=== PATIENT | female | born 1950 | race Caucasian/White ===

== ENCOUNTER 2017-12-03 18:52 | Outpatient (CLI) | payer MEDICARE, OTHER ==
--- NOTE | 2017-12-03 19:00 | CONSULTATION NOTE ---
Palliative Care Consultation - Referral Referring Provider: Lesly HERRERA Time of Visit: [id number] Referral setting: Home Referral Reason: ESRD/Goals of Care - Information Sources Records reviewed: Previous records reviewed History/Review of Systems obtained from: Patient, Family (Daughter Jodie present for visit) Exam limitations: No limitations - History of Present Illness Brief History of Present Illness: This is a 67-year-old woman who has a long and complex history attributed to her Crohn's disease, as a sequela of steroid to use has developed diabetes, progressive renal failure, and peripheral neuropathy. She also has underlying fibromyalgia, has been having increased creatinine, with her most recent one the last September 14, 2015 with a GFR of 14, BUN of 39, and a creatinine of 3.2. Her total protein was 5.1 and albumin 3.1. She does have an ileostomy, she originally had colostomy at age 43, but related to obstructed symptoms and complications has undergone multiple surgeries, currently ileostomy functioning well, and no s/s obstruction. She is also had multiple complications regarding her feet, including necrotizing fasciitis of her right foot in 06/17, with multiple rounds of antibiotic, amputation of her toes, and continued foot problems. Patient reports she is horribly afraid of needles, is distressful of the medical system, and has been fairly consistent in her messaging she does not want to pursue further workup with the chha the recognizing she does have a serious illness that is going to lead to her end of life. She has fairly high symptom burden, with increasing pain, she has underlying fibromyalgia, chronic fatigue syndrome, and arthritis. But she has been having escalating pain in her midthoracic area and feels this is related to her now diagnosed stage V kidney disease. She is using oxycodone 10 mg 4 times a day, reports only gets relief for about 3 or 4 hours, this is significantly impacting her quality of life. She denies pruritus, but is having significant nausea, she has had weight loss but is "forcing herself to eat", she has used cannabinoids for appetite stimulant. She has over the last several days developed some lower extremity edema, with some shallow venous ulcers, she attributes this to having been on her feet and not concentrating nor taking her diuretic. I am meeting with her daughter Jodie and patient, to discuss goals of care, the continuum of care and her wishes round end of life, and discussing her GAMALI[facility]. Medical/Surgical History - Past Medical History Cardiovascular: reports: None Respiratory: reports: None Neuro: reports: Peripheral neuropathy, Other (fibromyalgia) Endocrine/Autoimmune: reports: Type 2 diabetes GI: reports: GI bleed, Crohn's disease, Other (IBS) : reports: Renal insuffiency (now STAGE V;), Kidney stones HEENT: reports: None Psych: reports: Depression, Anxiety, Post traumatic stress disorder Musculoskeletal: reports: Osteoarthritis, Other (charcots foot) Derm: reports: None MRSA Hx?: No - Past Surgical History General: reports: Bowel surgery (ileostomy/hx colostomy at age 43), 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: reports: Tubal ligation, Hysterectomy HEENT: reports: Tonsil/Adenoidectomy - Substance History Use: Uses substance without health or social issues: Cannabis (intermittent for nausea/anxiety) Dependence: Experiences withdrawal or developed tolerances: NONE Social History - Living Situation Living arrangement: At home Living Situation: Alone (patient is ; very close with Daughter Jodie who lives in [place]) Family History - Family History Family History: Mother: (father of old age), Mental Illness, Father: Family History Comment/Other: took care of mother at end of life a few years ago Medications/Allergies - Medications Home Medications: Ambulatory Orders Medication Instructions Recorded Confirmed oxyCODONE [Roxicodone] 10 mg ORAL Q4HR PRN 09/21/14 12/03/17 Furosemide 20 mg PO DAILY PRN 12/03/17 12/03/17 Insulin Glargine [Lantus Solostar] 20 units SUBQ DAILY 12/03/17 12/03/17 Methadone 2.5 mg PO DAILY 12/03/17 12/03/17 Ondansetron [Ondansetron Odt] 4 mg PO Q6HR PRN 12/03/17 12/03/17 Vitamin B Complex/Folic Acid 1 tab PO DAILY 12/03/17 12/03/17 [B-Complex Tablet] amLODIPine [Norvasc] 5 mg PO DAILY 12/03/17 12/03/17 - Allergies Allergies/Adverse Reactions: Allergies Allergy/AdvReac Type Severity Reaction Status Date / Time codeine Allergy unknown Verified 09/21/14 19:15 gluten AdvReac Unknown Verified 09/21/14 19:15 Review of Systems - Constitutional Constitutional: reports: Fatigue, Fever, Chills, Poor appetite, Weight loss - Eyes Eyes: reports: Vision loss, Corrective lenses - Ears, Nose & Throat Ears, Nose & Throat: reports: Sore throat, Other (complains of sinus symptoms) - Cardiovascular Cardiovascular: reports: Edema. denies: Chest pain - Respiratory Respiratory: reports: SOB with exertion - Gastrointestinal Gastrointestinal: reports: Bloating, Poor appetite, Early satiety, Other (has ileostomy) - Genitourinary Genitourinary: reports: Other (very clear pale yellow urine; still voiding) - Musculoskeletal Musculoskeletal: reports: Muscle pain, Back pain, Muscle aches, Stiffness, Limited range of motion, Muscle weakness, Assistive devices (uses cane) - Integumentary Integumentary: reports: Rash, Dryness - Neurological Neurological: reports: General weakness - Psychiatric Psychiatric: reports: Depression, Anxiety - Endocrine Endocrine: reports: Diabetes type 2 (steroid induced) - Hematologic/Lymphatic Hematologic/Lymphatic: reports: Anemia - All Other Systems All Other Systems: reports: Reviewed and negative Physical Exam - Vital Signs Temperature: 97.3 C Pulse Rate: 96 Respiratory Rate: 18 O2 Saturation: 97 (ra @ rest) Blood Pressure: 142/78 - Physical Exam General Appearance: positive: Mild distress, Anxious Eyes Bilateral: positive: Normal inspection ENT: positive: ENT inspection nml Neck: positive: No JVD, Trachea midline Cardiovascular: positive: Regular rate & rhythm Respiratory: positive: Breath sounds nml Abdomen: positive: Soft, Other (ileostomy) Skin: positive: Pallor, Dryness, Wound (LE edema with multiple open areas/ blister;) Extremities: positive: Pedal edema (3+ bilateral up to knees; has not taken diuretic today; reports has been up on feet more last few days) Neurologic/Psychiatric: positive: Oriented x3, Weakness, Depressed mood/affect Palliative Care - POLST Patient has POLST: Yes POLST Status: DNR, Selective Treatment Pain: Pain worsening, Location Tiredness/Fatigue: Severe (7-10) Drowsiness/Sedation: Moderate (4-6) Nausea: Moderate (4-6) Depression: Mild (1-3) Anxiety: Moderate (4-6) Dyspnea: Moderate (4-6) Anorexia: Moderate (4-6) Sleep: Sleeps poorly Constipation: No Feelings of wellbeing/Perceived Quality of Life: Poor, Worsening Performance Status: Patient remains fiercely independent though she does have decreased activity tolerance and increased symptom burden. Is able currently to manage her own ADLs. - Palliative Care Discussion: Counseling regarding addressing patient's questions around the continuum of care , including palliative care support, questions regarding what is covered for support in the home, as well as hospice and end-of-life. We did complete a [facility], and to find her goals which is certainly to focus on quality of life anytime with her family and end-of-life a comfortable respectful . She did choose to be a DNA R, and selective treatment, she would accept some interventions weighing those benefits and burdens as long as she was not prolonging suffering. Her daughter is expecting her first grandchild come June, she is hoping to have her's pain better controlled, so she would be able to travel, and understands the seriousness of her illness. Her understanding of her prognosis is could be months to years. I suspect given her underlying comorbidities, she is at higher risk for more rapid decline, but will need to monitor her over the next few weeks to get a better sense of this. She does present with fairly high symptom burden, with pain, anorexia, nausea , and fluid overload. Remains fairly adamant to stay independent as long as possible Results - Lab Results Lab results reviewed: Yes Impression and Recommendations - Palliative Care Impression: This is a 67-year-old woman who now presents with progressive chronic kidney disease into stage V. At this point in time she is declining dialysis or further follow-up with nephrology. She does present with high symptom burden, particularly pain. She also is fairly clear on her goals of care, and a GAMALIEL ST was completed. Palliative care to provide support regarding pain and symptom management, anticipatory guidance, and transition to hospice when appropriate. Recommendations/Counseling Done: 1. End-stage renal disease, not seeking dialysis. Patient currently still urinating, is having some third spacing and lower extremity edema. She does present with fairly high symptom burden. Her serum creatinine is 3.2 and GFR 14. 2. Acute on chronic pain, multifactorial in origin. Given her end-stage renal disease, recommended medications for management are methadone and fentanyl. Given her underlying neuropathy, and not interested in gabapentin, methadone may be a good option for her. She does live alone so will start her low and slow, she is to use the oxycodone though there is less data on this for renal disease, for breakthrough pain. We will start her at 2.5 mg and titrate accordingly every few days. Reviewed opioid safety, hold if sedated, follow directions, and receive medications from only one provider. 3. Lower extremity edema. Did request patient take her furosemide on a regular basis for the next few days, will evaluate response and consider labs in the next week or 2. Patient is quite adverse though is willing to comply if will assist with symptom management. 4. Anorexia, this is multifactorial in origin as well. She does have intermittent nausea, she is using the cannabinoids with some relief, did provide her though ondansetron 4 mg 1 every 6 hours as needed to address for any acute symptoms. Patient is quite adverse to multiple medications. 5. Advanced care planning. We did complete a GAMALIEL [facility], she is instructed to persist on the fridge. I will get a copy to her provider and the hospital. Patient is hoping to have her symptoms better controlled to improve quality of life recognizing quantity of life is limited. Her goals are to travel with her daughter as well as see the of their new grandchild in June. Patient is pushing up against meeting hospice criteria, will continue to monitor rate of decline. Patient is fiercely independent and lives alone, we also discussed her interest in with dignity, but again reviewed the guidelines state she needed to be within that 6 month window. At this point in time will take a few weeks to months to verify her rate of decline and expected outcome from this. Time Spent: 75 minutes with greater than 50% of this done in counseling regarding the continuum of care symptom management and anticipatory guidance will titrate her pain medications to better control as well as support her in other symptom management and through this trajectory.
== END 2017-12-03 18:53 | disposition home or self-care (01) ==
LOC: PC 18:52
PROVIDERS: ATTEND Nurse Practitioner Adult Health
DX: Z51.5 Encounter for palliative care (principal); E11.22 Type 2 diabetes mellitus with diabetic chronic kidney disease; N18.5 Chronic kidney disease, stage 5; Z79.4 Long term (current) use of insulin; E11.40 Type 2 diabetes mellitus with diabetic neuropathy, unspecified; R60.0 Localized edema; R63.0 Anorexia; R11.0 Nausea; K50.90 Crohn's disease, unspecified, without complications; M79.7 Fibromyalgia; Z93.2 Ileostomy status; R53.82 Chronic fatigue, unspecified; Z89.429 Acquired absence of other toe(s), unspecified side; Z79.891 Long term (current) use of opiate analgesic; F32.9 Major depressive disorder, single episode, unspecified; F41.9 Anxiety disorder, unspecified; F43.10 Post-traumatic stress disorder, unspecified; M62.81 Muscle weakness (generalized); Z66 Do not resuscitate
CPT/HCPCS: 99345

== ENCOUNTER 2017-12-13 15:00 | Outpatient (CLI) | payer MEDICARE, OTHER ==
--- NOTE | 2017-12-13 18:11 | CONSULTATION NOTE ---
Palliative Care Follow Up - Referral Referring Provider: Lesly HERRERA Time of Visit: [id number] Referral setting: Home Referral Reason: ESRD - Information Sources Records reviewed: Previous records reviewed History/Review of Systems obtained from: Patient Exam limitations: No limitations - History of Present Illness Update Brief HPI Update: Please see note 3/2 for more comprehensive BHP. This is a 67-year-old woman has a long and complex history attributed to her Crohn's disease, as the sequela of steroid use is developed diabetes, progressive renal failure and peripheral neuropathy. She does have underlying fibromyalgia. She also has an ileostomy on her right side, she originally had a colostomy on her left, originally at age 43. She has had multiple surgeries, multiple hospitalizations and multiple complications regarding her feet, including necrotizing fasciitis of her right foot in 06/17. I met with patient to evaluate goals of care, currently she does have a diagnosed end-stage renal disease as of her numbers on 09/17/2017 with a GFR of 14, BUN of 39, and a creatinine of 3.2. She has "deathly" afraid of needles, is not interested in follow-up with dialysis or the lining stamper, and is aware that this will lead to an end-of-life event for her. She is hopeful to have some extended period of time, she is expecting her first grandchild in June. She has been having increased pain and discomfort where she has described it is "in her kidneys", she is having increasing anxiety, as well as fatigue and intermittent nausea. We had trialed her this last week on methadone, a very small dose of 2.5 mg at bedtime, she found this actually quite mind altering, felt very depressed, and had nausea and dry heaves. She did trial 5 nights, we did agree at this point in time it most likely was not a good fit for her. She is still getting relief from the oxycodone 10 mg, she has increased her dosing to about 5 in 24 hours, with some days was 6 with increased back pain as she did pull her back moving some furniture. Patient does present with elevated blood pressure today of 172/92, she has not been able to track it as her cuff does not work, has currently ran out of her blood pressure medications as of this morining, have discussed may want to change to another medication have call into her primary care provider. She does have some lower extremity edema, she is only taken the Lasix once this last week, as she reports swelling fluctuates with it increased today. Social History - Living Situation Living arrangement: At home Living Situation: Alone Support System: Her daughter and her are very close, she does come and visit her on weekends as able. Patient so far has been able to manage to hire the support that she is needed, this is her plan that she needs more increased personal caregiving as well Medications/Allergies - Medications Home Medications: Ambulatory Orders Medication Instructions Recorded Confirmed oxyCODONE [Roxicodone] 10 mg ORAL Q4HR PRN 09/21/14 12/13/17 Furosemide 20 mg PO DAILY PRN 12/03/17 12/13/17 Insulin Glargine [Lantus Solostar] 20 units SUBQ DAILY 12/03/17 12/13/17 Ondansetron [Ondansetron Odt] 4 mg PO Q6HR PRN 12/03/17 12/13/17 Vitamin B Complex/Folic Acid 1 tab PO DAILY 12/03/17 12/13/17 [B-Complex Tablet] amLODIPine [Norvasc] 5 mg PO DAILY 12/03/17 12/13/17 Cholecalciferol (Vitamin D3) 5 tab PO DAILY 12/13/17 12/13/17 [Vitamin D3] Multivitamin [Multiple Vitamins] 1 tab PO DAILY 12/13/17 12/13/17 Hampton-3 Fatty Acids/Fish Oil 1 cap PO DAILY 12/13/17 12/13/17 [Hampton-3 Fish Oil 1,000 mg Sfgl] Potassium Gluconate 3 tab PO PRN PRN MDD with 12/13/17 12/13/17 furosemide prn dosing - Allergies Allergies/Adverse Reactions: Allergies Allergy/AdvReac Type Severity Reaction Status Date / Time codeine Allergy unknown Verified 09/21/14 19:15 gabapentin AdvReac Dizziness Verified 12/14/17 07:33 gluten AdvReac Unknown Verified 09/21/14 19:15 methadone AdvReac Dizziness Verified 12/14/17 07:33 Review of Systems - Constitutional Constitutional: reports: Fatigue, Weakness - Ears, Nose & Throat Ears, Nose & Throat: reports: Dry mouth - Cardiovascular Cardiovascular: reports: Decr. exercise tolerance. denies: Chest pain - Respiratory Respiratory: reports: SOB with exertion. denies: Cough, SOB at rest - Gastrointestinal Gastrointestinal: reports: Nausea (with methadone and dry heaves), Good appetite , Other (ileostomy) - Genitourinary Genitourinary: reports: Other (voiding adequate amounts) - Musculoskeletal Musculoskeletal: reports: Back pain (Left sided back pain; acute "overdid"), Stiffness - Integumentary Integumentary: reports: Dryness, Other - Neurological Neurological: reports: General weakness - Psychiatric Psychiatric: reports: Anxiety. denies: Depression - Endocrine Endocrine: reports: Diabetes type 2 - Hematologic/Lymphatic Hematologic/Lymphatic: denies: Recurrent infections - All Other Systems All Other Systems: reports: Reviewed and negative Physical Exam - Vital Signs Temperature: 97.1 C Pulse Rate: 76 Respiratory Rate: 18 O2 Saturation: 97 (ra @ rest) Blood Pressure: 172/92 - Physical Exam General Appearance: positive: No acute distress, Alert Eyes Bilateral: positive: Normal inspection ENT: positive: ENT inspection nml Neck: positive: No JVD, Trachea midline Cardiovascular: positive: Regular rate & rhythm Respiratory: positive: Breath sounds nml Abdomen: positive: Soft Skin: positive: Pallor, Dryness, Wound (right lower extremity with shallow 2 cm wound, no s/s infection) Extremities: positive: Pedal edema (taut LE extremity edema up to midcalf) Neurologic/Psychiatric: positive: Oriented x3, Mood/affect nml Palliative Care - POLST Patient has POLST: Yes POLST Status: DNR, Selective Treatment Pain: Pain worsening, Location (acute on chronic back pain; using oxycodone 10 mg tabs 4-6/24 hours) Tiredness/Fatigue: Moderate (4-6) Drowsiness/Sedation: Mild (1-3) Nausea: None Depression: Mild (1-3) Anxiety: Moderate (4-6) Dyspnea: Mild (1-3) Anorexia: Moderate (4-6) Sleep: Variable sleep pattern Constipation: Comment (has ileostomy) Feelings of wellbeing/Perceived Quality of Life: Fair, Acceptable, Worsening Performance Status: Patient remains independent in her ADLs, though she does have poor activity tolerance. She is ambulatory, able to cook for herself, who put her at a PPS of 70% - Palliative Care Discussion: Discussion centered on follow-up from last visit, is concerned about the stress of this on her daughter. Did discuss as far as prognostication, and managing her current blood pressure meds and diuretics, it would be nice to have some labs for her kidney function. She remains quite adamant as far as her feelings regarding this, would be willing to look at this at the end of January. Did ask her to consider as a compromise, if she continues have lower extremity edema and needing more frequent furosemide, she consider follow up sooner to assist us in managing her meds and comfort. She does have high anxiety, multiple stressors in her life, has remained fairly independent but is realistic. Impression and Recommendations - Palliative Care Impression: This is a 67-year-old woman with a complex medical history, including end-stage renal disease defined by her GFR of 14 in September 2017. She has decided not to pursue dialysis or further follow-up nephrology, goals to focus on quality of life and end-of-life a comfortable respectful at home. Patient currently does not meet hospice criteria, has moderate symptom burden, will benefit from ongoing palliative care support Recommendations/Counseling Done: 1.End-stage renal disease. Patient currently declining dialysis or follow-up with nephrology. Did discuss in the context of medication management, as well as assisting in prognostication would recommend labs. At this point in time may consider doing it in January, and less compelling argument for symptom management. 2. Acute on chronic pain. Patient tolerated methadone poorly, even at low dosing, with unacceptable side effects to the patient. She is managing on her short acting oxycodone 10 mg, did discuss possible long-acting OxyContin, though with her ileostomy most likely is not a good option because of absorption. She also would be a candidate for fentanyl, particularly in light of her end-stage renal disease, at this point in time though agreed to monitor as has not increased in severity and is currently addressed with the oxycodone. 3. Hypertension. Patient had lower extremity edema last visit have been asked to take her furosemide more frequently, had only taken that daily dose, she did agree to take it today. She does have lower extremity edema and third spacing. She took her last amlodipine 5 mg this a.m., will follow up with PCP. 4. Advanced care planning. Patient has GAMALIEL ST in place, does not currently meet hospice criteria, and currently feels that she is managing adequately. She is fiercely independent and will offer up support as allowed. ADDENDUM: Unable to make contact with Provider, will go ahead and reorder amlodipine but at 10 mg. This information was provided to patient as far as instructions to start at 10 mg, if she became symptomatic or dizzy to decrease to 5 mg. [facility] into [facility]. Will follow up with provider regarding considering lisinopril, did not want to initiate without follow up secondary to patient's history with drug sensitivities. Time Spent: Time spent 45 minutes with greater than 50% of this done in counseling regarding symptom management and anticipatory guidance
== END 2017-12-13 15:01 | disposition home or self-care (01) ==
LOC: PC 15:00
PROVIDERS: ATTEND Nurse Practitioner Adult Health
DX: Z51.5 Encounter for palliative care (principal); N18.6 End stage renal disease; M79.7 Fibromyalgia; I12.0 Hypertensive chronic kidney disease with stage 5 chronic kidney disease or end stage renal disease; F41.9 Anxiety disorder, unspecified; R60.0 Localized edema; K50.90 Crohn's disease, unspecified, without complications; E11.22 Type 2 diabetes mellitus with diabetic chronic kidney disease; R53.83 Other fatigue; Z79.891 Long term (current) use of opiate analgesic; Z93.2 Ileostomy status; Z79.4 Long term (current) use of insulin; Z66 Do not resuscitate
CPT/HCPCS: 99349

== ENCOUNTER 2018-04-01 17:14 | Outpatient (CLI) | payer MEDICARE, OTHER ==
--- NOTE | 2018-04-01 17:19 | CONSULTATION NOTE ---
Palliative Care Follow Up - Referral Referring Provider: Lesly HERRERA Time of Visit: 6411-2700 Referral setting: Home (It is a taxing and considerable effort for the patient to leave the home secondary to fatigue and weakness, recent acute ED visit) Referral Reason: Cellulits/ESRD not on Dialysis - Information Sources Records reviewed: Previous records reviewed History/Review of Systems obtained from: Patient Exam limitations: No limitations - History of Present Illness Update Brief HPI Update: This is an independent 67-year-old woman whom I saw this December for goals of care regarding worsening kidney function. She does have a long and complex history attributed to her Crohn's disease, has a sequela of steroid use has developed diabetes, progressive renal failure, and peripheral neuropathy. She is also had Charcot tooth, multiple issues with circulation and wounds in her lower extremities, most recently with the hot weather, increased lower extremity swelling, developed a blister and severe cellulitis in her right foot. When she went to her PCP, she was sent to the ED, her MRI was negative for osteomyelitis, there was concern as she has a history of necrotizing fasciitis. She was put on 2 antibiotics, this Bactrim DS and Keflex, unfortunately dose modifications were not made, and patient had severe nausea and vomiting for 4 days, and quit the antibiotics. She did though have some improvement, she does have an area of redness and swelling, concern for a pocket of abscess plantar area, but redness and tenderness is improved, as well as afebrile at this point in time. The areas about 2 x 3 cm, they had to drawn on her foot which showed more of an extensive area probably 5 x 6 cm. In the context of her labs she was shown to have worsening renal failure, her creatinine in September 2017 was 3.2, it has risen to 5.6, her BUN of 39, at 44, and her GFR was 8, down from 15. I had been waiting for her to get some labs, to get a sense of the rate of her decline, she is also quite anemic with a hemoglobin 8.7 and hematocrit of 26.0. Her white count though was 7.57. In reviewing how she is been doing over the last couple months, and has been with increased fatigue, less activity tolerance, and some mild increase in lower extremity is swelling with increased use of her furosemide. She has had some mild weight loss, but no weights to share. She is feeling better after the last couple days, but had been acutely ill with her most recent infection. This did give her concern as how she was going to manage as she lives alone, and has no caregiver. Social History - Living Situation Living arrangement: At home Living Situation: Alone Support System: Very close to daughter Jodie, calls at least daily and visits several times a month. Daughter no longer , sadness but doing okay, was difficult time period to go through. Has a few friends can call, but needing more support for household and with latest acute illness more supportive care, is doing better today. Medications/Allergies - Medications Home Medications: Ambulatory Orders Medication Instructions Recorded Confirmed oxyCODONE [Roxicodone] 10 mg ORAL Q3HR PRN MDD 6 tabs 09/21/14 04/01/18 Furosemide 20 mg PO DAILY PRN 12/03/17 04/01/18 Insulin Glargine [Lantus Solostar] 20 units SUBQ QPM 12/03/17 04/01/18 Ondansetron [Ondansetron Odt] 4 mg PO Q6HR PRN 12/03/17 04/01/18 Vitamin B Complex/Folic Acid 1 tab PO DAILY 12/03/17 04/01/18 [B-Complex Tablet] amLODIPine [Norvasc] 10 mg PO DAILY 12/03/17 04/01/18 Cholecalciferol (Vitamin D3) 4 tab PO DAILY 12/13/17 04/01/18 [Vitamin D3] Multivitamin [Multiple Vitamins] 1 tab PO DAILY 12/13/17 04/01/18 [place]-3 Fatty Acids/Fish Oil 1 cap PO DAILY 12/13/17 04/01/18 [[place]-3 Fish Oil 1,000 mg Sfgl] Potassium Gluconate 3 tab PO PRN PRN MDD with 12/13/17 04/01/18 furosemide prn dosing Calcium/Magnesium/Vitamin D3 1 tab PO DAILY 04/01/18 04/01/18 [[place]-Mag Complex 300-150 mg Tab] Cephalexin [Keflex] 500 mg PO BID MDD x 5 days 04/01/18 04/01/18 Lactobacillus Acidophilus 1 cap PO DAILY 04/01/18 04/01/18 [Probiotic Acidophilus] Melatonin 1 tab PO QPM 04/01/18 04/01/18 Sulfamethox/Trimeth 800/160 0.5 tab PO BID MDD 5 days 04/01/18 04/01/18 [Bactrim Ds] - Allergies Allergies/Adverse Reactions: Allergies Allergy/AdvReac Type Severity Reaction Status Date / Time codeine Allergy unknown Verified 09/21/14 19:15 gabapentin AdvReac Dizziness Verified 12/14/17 07:33 gluten AdvReac Unknown Verified 09/21/14 19:15 methadone AdvReac Dizziness Verified 12/14/17 07:33 Review of Systems - Constitutional Constitutional: reports: Fatigue (worsened with acute illness; some increase overall), Weakness, Poor appetite, Weight loss - Eyes Eyes: reports: Vision loss, Corrective lenses - Cardiovascular Cardiovascular: reports: Edema (improved lasts few days), Decr. exercise tolerance. denies: Chest pain - Respiratory Respiratory: denies: Cough, SOB at rest - Gastrointestinal Gastrointestinal: reports: Nausea (improved but severe n/v with antibiotics and dry heaves for 4 days), Poor appetite, Other (ileostomy/no obstructive symptoms) - Genitourinary Genitourinary: reports: Flank pain (right sided tenderness), Other (light yellow urine; but is voiding regularly) - Musculoskeletal Musculoskeletal: reports: Stiffness, Muscle weakness - Integumentary Integumentary: reports: Dryness, Other (cellulitis dx right foot; improved some with AB unable to tolerate full course) - Neurological Neurological: reports: General weakness - Psychiatric Psychiatric: reports: Anxiety - Endocrine Endocrine: reports: Diabetes type 2 (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; difficulty even giving insulin) - Hematologic/Lymphatic Hematologic/Lymphatic: reports: Anemia - All Other Systems All Other Systems: reports: Reviewed and negative Physical Exam - Vital Signs Temperature: 97.2 C Pulse Rate: 68 Respiratory Rate: 18 O2 Saturation: 95 (ra @ rest) Blood Pressure: 152/82 - Physical Exam General Appearance: positive: No acute distress, Alert Eyes Bilateral: positive: Normal inspection ENT: positive: No signs of dehydration Neck: positive: No JVD, Trachea midline Cardiovascular: positive: Other (few irregular beats) Respiratory: positive: Breath sounds nml Abdomen: positive: Soft Skin: positive: Pallor, Dryness, Wound, Other (venous stasis on shins bilaterally) Extremities: positive: Pedal edema Neurologic/Psychiatric: positive: Oriented x3, Mood/affect nml Palliative Care - POLST Patient has POLST: Yes POLST Status: DNR, Selective Treatment Pain: Pain worsening, Location (Acute on chronic right foot pain, this is improved with antibiotics. She is mild to moderate pain in her right mid thoracic lumbar area, she calls this "her kidney pain" and baseline fibromyalgia pain multiple areas joints and muscles, as well as peripheral neuropathy. She is using oxycodone 10 mg 1 tab 4-6 times a day, responding to her fluctuating pain levels. She has been trialed on methadone without good results and side effects. Will continue her current regimen.) Tiredness/Fatigue: Severe (7-10) Drowsiness/Sedation: Mild (1-3) Nausea: Moderate (4-6) Depression: None Anxiety: Mild (1-3) Dyspnea: None Anorexia: Severe (7-10) Sleep: Sleeps poorly (sleep pattern left over from long term stay 3-4 years ago; tends not to go to sleep until 2:00 am; thus is tired on arising early;) Feelings of wellbeing/Perceived Quality of Life: Fair, Acceptable, Worsening Performance Status: Patient is able to meet her ADLs, she does have to pace her self, she does fatigue quite easily. - Palliative Care Discussion: The patient does meet the criteria for end-stage renal disease, she does not meet the criteria for hospice yet. She is still making urine, she does have some lower extremity edema, but does not present with hepatorenal syndrome. She has had some mild weight loss, but is still able to eat and drink. She has had some decline but not rapid. We did discuss the threshold as far as transitioning to hospice, and though her goals of care are consistent with focus on comfort only, she is more appropriate for palliative care candidate currently. Patient is though thinking about end-of-life issues, given her acute illness, she does see she is going to need more support. We did discuss some of the programs that are available when she is more functionally compromised. At this point, she is thinking she wants to be at home for her end-of-life experience. She is also asked about with dignity, counseling regarding the process regarding this. He does though need at this point in time to be able to pursue this, 2 physicians that say she has 6 months or less, when she is not quite within that window. She should certainly is at risk for the sequela of a rapid decline, and could have a prognosis of less than 6 months, that we will need to monitor for increased symptom burden. Results - Lab Results Lab results reviewed: Yes Impression and Recommendations - Palliative Care Impression: This is a 67-year-old woman with a complex history with multiple comorbidities including Crohn's disease, diabetes, worsening end-stage renal failure, peripheral neuropathy, and now acute illness with cellulitis. She does have moderate symptom burden, and her goal is to remain as independent as possible for as long as possible. Palliative care to provide support regarding pain and symptom management until transition to hospice Recommendations/Counseling Done: 1. End-stage renal failure without pursuit of dialysis. Patient's numbers are worsening, patient has a severe needle phobia. Since serial labs not acceptable. She does have worsening GFR at 8 with her last ED visit. Patient is still making urine, does have some increased lower extremity edema, but is still managing currently. 2. Acute cellulitis. Did recommend patient continue her antibiotics, though at a modified dose, follow-up with Pharmacist, with recommendation to take half tab a Bactrim DS every 12 hours 5 days, and cephalexin 500 mg twice daily 5 days. And finish the dosing. She has had response. She is to follow-up with her PCP. 3. Acute on chronic pain. Patient does identify with increased pain and discomfort in her right lower thoracic area, as well as her baseline underlying fibromyalgia pain. She has been using her oxycodone 10 mg about 4-5 tablets a day with good relief, with her acute illness she has increase this to 6. Rx was provided. 4. Advanced care planning. Patient remains quite frail, her goals are to focus on quality of life and comfort. Will continue to meet on a regular basis , and monitor decline. Counseling provided on hospice, with dignity, and goals of care. Time Spent: 60 minutes was given 50% of this done in counseling regarding pain and symptom management and goals of care as well as anticipatory guidance
== END 2018-04-01 17:15 | disposition home or self-care (01) ==
LOC: PC 17:14
PROVIDERS: ATTEND Nurse Practitioner Adult Health
DX: L03.115 Cellulitis of right lower limb (principal); E09.610 Drug or chemical induced diabetes mellitus with diabetic neuropathic arthropathy; T38.0X5D Adverse effect of glucocorticoids and synthetic analogues, subsequent encounter; K50.90 Crohn's disease, unspecified, without complications; E09.22 Drug or chemical induced diabetes mellitus with diabetic chronic kidney disease; E09.42 Drug or chemical induced diabetes mellitus with neurological complications with diabetic polyneuropathy; N18.6 End stage renal disease; M54.6 Pain in thoracic spine; M79.7 Fibromyalgia; G89.29 Other chronic pain; R53.83 Other fatigue; D64.9 Anemia, unspecified; Z66 Do not resuscitate; Z79.891 Long term (current) use of opiate analgesic; Z79.4 Long term (current) use of insulin
CPT/HCPCS: 99350

== ENCOUNTER 2018-06-24 15:45 | Outpatient (CLI) | payer MEDICARE, OTHER ==
--- NOTE | 2018-06-24 17:36 | CONSULTATION NOTE ---
Palliative Care Follow Up - Referral Referring Provider: Lesly HERRERA Time of Visit: 4625-4557 Referral setting: Home Referral Reason: ESRD not on dialysis - Information Sources Records reviewed: Previous records reviewed History/Review of Systems obtained from: Patient Exam limitations: No limitations - History of Present Illness Update Brief HPI Update: This is a feisty independent 67-year-old woman who presents with end-stage renal disease, who is chosen not to pursue dialysis. She also very much does not want to "watch the numbers", by last numbers for her are when she was seen in the ED for cellulitis of her right foot. At that point in time her creatinine was 5.6, BUN 44, and GFR was 8. She also presented anemic with a hemoglobin 8.7 and hematocrit of 26.0. She continues to experience severe fatigue, increasing lower extremity edema that is not responding as well to her furosemide, some skin changes as far as the most likely uremia/pruritus. She has not had any increased confusion, she continues to struggle with a nonhealing wound on her right foot. She has been trying to make the best of things, she does have overall pain, but most pronounced in her right upper posterior thoracic area. She uses oxycodone 10 mg about every 4 hours with adequate control per her report. She is still voiding and making some urine. She is trying to clean out her things, getting ready for garage so, her daughter is coming weekly to visit her. She does not feel overly anxious or depressed, has some curiosity's but does not want a lot of information. She appears more cachectic in with temporal wasting in upper extremities, given her lower extremity edema that does appear to be up to about mid thigh today, I suspect we cannot get an accurate weight.,she says it is the worst it has been for a while. She also has diabetes, she reports she has had a couple episodes of hypoglycemia, peripheral neuropathy, Charcot tooth, multiple issues with circulations and wounds in her lower extremities, complex history attributed to her Crohn's disease with an ileostomy. Social History - Living Situation Living arrangement: At home Living Situation: Alone Support System: She has 1 daughter, who is coming on a weekly basis to spend time with her mother and check on her. She does feel like if she needs to she can go to her daughter's home for hospice care if needed. She continues to reach outside of herself, continues to hire just small amounts of help, continues to want to focus on maintaining her independence Medications/Allergies - Medications Home Medications: Ambulatory Orders Medication Instructions Recorded Confirmed oxyCODONE [Roxicodone] 10 mg ORAL Q3HR PRN MDD 6 tabs 09/21/14 06/24/18 Furosemide 20 - 40 mg PO DAILY PRN 12/03/17 06/24/18 Insulin Glargine [Lantus Solostar] 20 units SUBQ QPM 12/03/17 06/24/18 Ondansetron [Ondansetron Odt] 4 mg PO Q6HR PRN 12/03/17 06/24/18 Vitamin B Complex/Folic Acid 1 tab PO DAILY 12/03/17 06/24/18 [B-Complex Tablet] amLODIPine [Norvasc] 10 mg PO DAILY 12/03/17 06/24/18 Cholecalciferol (Vitamin D3) 4 tab PO DAILY 12/13/17 06/24/18 [Vitamin D3] Multivitamin [Multiple Vitamins] 1 tab PO DAILY 12/13/17 06/24/18 [place]-3 Fatty Acids/Fish Oil 1 cap PO DAILY 12/13/17 06/24/18 [[place]-3 Fish Oil 1,000 mg Sfgl] Potassium Gluconate 3 - 6 tab PO PRN PRN MDD with 12/13/17 06/24/18 furosemide prn dosing Calcium/Magnesium/Vitamin D3 1 tab PO DAILY 04/01/18 06/24/18 [[place]-Mag Complex 300-150 mg Tab] Lactobacillus Acidophilus 1 cap PO DAILY 04/01/18 06/24/18 [Probiotic Acidophilus] Melatonin 1 tab PO QPM 04/01/18 06/24/18 - Allergies Allergies/Adverse Reactions: Allergies Allergy/AdvReac Type Severity Reaction Status Date / Time codeine Allergy unknown Verified 09/21/14 19:15 gabapentin AdvReac Dizziness Verified 12/14/17 07:33 gluten AdvReac Unknown Verified 09/21/14 19:15 methadone AdvReac Dizziness Verified 12/14/17 07:33 Review of Systems - Constitutional Constitutional: reports: Fatigue, Fever (last week for 3 days but has resolved), Poor appetite, Weight loss - Eyes Eyes: reports: Vision loss, Corrective lenses - Ears, Nose & Throat Ears, Nose & Throat: reports: Hoarseness, Dry mouth - Cardiovascular Cardiovascular: reports: Edema, Decr. exercise tolerance. denies: Chest pain - Respiratory Respiratory: reports: SOB with exertion - Gastrointestinal Gastrointestinal: reports: Poor appetite, Early satiety, Other (ileostomy) - Musculoskeletal Musculoskeletal: reports: Stiffness, Muscle weakness - Integumentary Integumentary: reports: Rash (venous stasis), Dryness, Other (reports wound on right foot; declined to remove drsg for exam) - Neurological Neurological: reports: General weakness, Abnormal gait (shuffled) - Psychiatric Psychiatric: denies: Depression, Anxiety - Endocrine Endocrine: reports: Diabetes type 2 (episodes of hypoglycemia; adjusts insulin) - Hematologic/Lymphatic Hematologic/Lymphatic: reports: Anemia - All Other Systems All Other Systems: reports: Reviewed and negative Physical Exam - Vital Signs Temperature: 97.2 C Pulse Rate: 72 Respiratory Rate: 18 O2 Saturation: 97 (ra @ rest) Blood Pressure: 152/72 - Physical Exam General Appearance: positive: No acute distress Eyes Bilateral: positive: Normal inspection ENT: positive: No signs of dehydration Neck: positive: Trachea midline Cardiovascular: positive: Regular rate & rhythm Respiratory: positive: Breath sounds nml Abdomen: positive: Soft Skin: positive: Pallor, Dryness, Other (LE with scaley plaques; skin raw but w hat observed with out s/s infection dull pink) Extremities: positive: Pedal edema (increased up to mid thigh; using furosemide 40 mg regularly though not daily) Neurologic/Psychiatric: positive: Oriented x3, Mood/affect nml, Weakness Palliative Care - POLST Patient has POLST: Yes POLST Status: DNR, Selective Treatment Pain: Pain unchanged, Location (posterior thoracic area/abdominal radiating around to back) Tiredness/Fatigue: Severe (7-10) Drowsiness/Sedation: Mild (1-3) Nausea: Mild (1-3) Depression: None Anxiety: None Anorexia: Moderate (4-6), Weight loss Sleep: Variable sleep pattern (has used melatonin trying timing to see if more effective; up often late at night based on old patterns) Performance Status: Patient remains fiercely independent, attending to her own ADLs, does get some assistance at times for bigger tasks, though she does fatigue quite easily. She does say a lot of her energy for the weekends when her daughter comes, but is quite exhausted after she leaves. I would still put her at a PPS of 70% - Palliative Care Discussion: Patient wanted to his general description of what to expect, discussed you know with increasing fatigue, more skin changes sleeping more less able to do things. Also concerned about increasing edema, and needing more assistance. She has DPOA in place and POLST. Currently still getting things all organized for her pending demise, doesn't dwell on it. Impression and Recommendations - Palliative Care Impression: This is a 68-year-old woman with end-stage renal disease is chosen not to pursue further workup and or dialysis. She does present with fairly high symptom burden of pain, fatigue, anorexia now with weight loss, and increasing lower extremity edema. Palliative care to provide support as patient allows, and transition to hospice when appropriate Recommendations/Counseling Done: 1. End-stage renal failure without procedure of dialysis. Patient is still making urine, she presents today with increasing lower extremity edema not as responsive to the furosemide, but still continuing to manage. She is not interested in further gathering of numbers at this point in time, she does titrate her furosemide according to her lower extremity swelling. Reviewed instructions to make sure she increases her potassium intake as well, she is using [id number] potassium which is 3 tabs equals 10 mEq. Declined to see full roll inspector as doesn't want further information, but okay if I consult to get better information for titration of diuretics. 3. Venous stasis just presents with ongoing acute skin changes. She does have a wound on her right foot, dressed which she declines to have examined. Consult with wound care nurse; inst to wash with gentle cleanser without residue and apply aquaphor daily, discontinue the AB ointment at this time. 3. Acute on chronic pain. Patient continues to have increased pain and dis comfort but is currently controlled on oxycodone 10 mg about 4-5 tablets a day with good relief. 4. Advanced care planning. Patient remains quite frail, her goals continue to focus on quality of life and spending time with her daughter. Will continue to meet on a regular basis as allowed by patient. Counseling provided regarding anticipatory guidance as patient wants limited information. She is preparing for her impending decline, with goal to stay as independent as possible. Time Spent: 45 minutes with greater than 50% of this done in counseling review of patient's current symptomology, goals of care, and anticipatory guidance
== END 2018-06-24 15:46 | disposition home or self-care (01) ==
LOC: PC 15:45
PROVIDERS: ATTEND Nurse Practitioner Adult Health
DX: Z51.5 Encounter for palliative care (principal); E11.22 Type 2 diabetes mellitus with diabetic chronic kidney disease; N18.6 End stage renal disease; R53.83 Other fatigue; R60.0 Localized edema; G89.29 Other chronic pain; E11.42 Type 2 diabetes mellitus with diabetic polyneuropathy; E11.610 Type 2 diabetes mellitus with diabetic neuropathic arthropathy; E11.51 Type 2 diabetes mellitus with diabetic peripheral angiopathy without gangrene; K50.90 Crohn's disease, unspecified, without complications; H54.7 Unspecified visual loss; D64.9 Anemia, unspecified; Z93.2 Ileostomy status; Z66 Do not resuscitate; Z79.891 Long term (current) use of opiate analgesic; Z79.4 Long term (current) use of insulin
CPT/HCPCS: 99349

== ENCOUNTER 2018-10-07 14:30 | Outpatient (CLI) | payer MEDICARE, OTHER ==
--- NOTE | 2018-10-07 17:41 | CONSULTATION NOTE ---
Palliative Care Follow Up - Referral Referring Provider: Lesly HERRERA Time of Visit: [id number] Referral setting: Home Referral Reason: ESRD not on dialysis/DM - Information Sources Records reviewed: Previous records reviewed History/Review of Systems obtained from: Patient Exam limitations: No limitations - History of Present Illness Update Brief HPI Update: This is an independent 68-year-old woman who presents with end-stage renal disease, who is decided not to pursue further dialysis or nephrology support. She very much does not want to "watch the numbers", her last labs are from March 22 when she was seen in the ED for cellulitis of her right foot. At that point in time her creatinine was 5.6, BUN 44, and GFR was 8. She also presented anemic with hemoglobin of 8.7 and hematocrit 26.0. She has wanted little intervention or support, but appreciative of palliative care interactions. Visit today to follow-up on current symptom burden, and provide anticipatory guidance. Patient does present with increasing fatigue, increased difficulty with activity tolerance, she does report sleeping more as well as having her days and nights flipped. She is having increased pain, most of this is located in her right lower thoracic region, radiating across abdomen, but also generalized as well as lower extremity discomfort from her increasing lower extremity edema and ongoing peripheral neuropathy. She does have fluctuating status as far as intermittent nausea and vomiting, she does present as more ca chectic in her upper thoracic, extremities, and face. She does admit to some increased sadness and depression, denies confusion or memory issues. Patient's past medical history also includes diabetes, insulin-dependent. Patient vehemently dislikes needles and blood, so does not do blood sugars but has been basing her Lantus on her intake, symptoms, and past experiences. She has Charcot tooth, reports having increased draining from her right chronic foot wound that is worsening. She denies fever or chills, perceives it as a chronic infection though considering round of antibiotics. She also has multiple issues with lower extremity circulation, venous stasis, as well as a complex history attributed to her Crohn's disease and has an ileostomy. Social History - Living Situation Living arrangement: At home Living Situation: Alone Support System: Patient has 1 daughter 42 years old, who lives in [place]. They are very close and talk on the phone every day. She comes are she comes with her every weekend for support. She continues to talk about hiring assistance, though has not followed through on this yet. She is very close to her son-in-law as well, there are many family stressors, and she is concerned about being a burden. Medications/Allergies - Medications Home Medications: Ambulatory Orders Medication Instructions Recorded Confirmed oxyCODONE [Roxicodone] 10 - 15 mg ORAL Q3HR PRN MDD 9 tabs 09/21/14 10/07/18 Furosemide 20 - 40 mg PO DAILY PRN 12/03/17 10/07/18 Insulin Glargine [Lantus Solostar] 8 - 20 units SUBQ QPM 12/03/17 10/07/18 Ondansetron [Ondansetron Odt] 4 mg PO Q6HR PRN 12/03/17 10/07/18 Vitamin B Complex/Folic Acid 1 tab PO DAILY 12/03/17 10/07/18 [B-Complex Tablet] amLODIPine [Norvasc] 10 mg PO DAILY 12/03/17 10/07/18 Cholecalciferol (Vitamin D3) 4 tab PO DAILY 12/13/17 10/07/18 [Vitamin D3] Multivitamin [Multiple Vitamins] 1 tab PO DAILY 12/13/17 10/07/18 [place]-3 Fatty Acids/Fish Oil 1 cap PO DAILY 12/13/17 10/07/18 [[place]-3 Fish Oil 1,000 mg Sfgl] Potassium Gluconate 3 - 6 tab PO PRN PRN MDD with 12/13/17 10/07/18 furosemide prn dosing Calcium/Magnesium/Vitamin D3 1 tab PO DAILY 04/01/18 10/07/18 [Christo-Mag Complex 300-150 mg Tab] Lactobacillus Acidophilus 1 cap PO DAILY 04/01/18 10/07/18 [Probiotic Acidophilus] Melatonin 1 tab PO QPM 04/01/18 10/07/18 - Allergies Allergies/Adverse Reactions: Allergies Allergy/AdvReac Type Severity Reaction Status Date / Time codeine Allergy unknown Verified 09/21/14 19:15 gabapentin AdvReac Dizziness Verified 12/14/17 07:33 gluten AdvReac Unknown Verified 09/21/14 19:15 methadone AdvReac Dizziness Verified 12/14/17 07:33 Review of Systems - Constitutional Constitutional: reports: Fatigue, Poor appetite, Weight loss. denies: Fever, Chills - Eyes Eyes: denies: Vision loss - Ears, Nose & Throat Ears, Nose & Throat: reports: Dry mouth - Cardiovascular Cardiovascular: reports: Exertional dyspnea, Decr. exercise tolerance - Respiratory Respiratory: reports: SOB with exertion. denies: SOB at rest - Gastrointestinal Gastrointestinal: reports: Nausea, Vomiting, Poor appetite, Early satiety, Other (ileostomy) - Genitourinary Genitourinary: reports: Other (still making urine) - Musculoskeletal Musculoskeletal: reports: Muscle weakness - Integumentary Integumentary: reports: Dryness, Other (venous stasis) - Neurological Neurological: reports: General weakness - Psychiatric Psychiatric: reports: Depression - Endocrine Endocrine: reports: Diabetes type 2 (does not check BS dislikes blood; does it on symptoms and calculated intake) - Hematologic/Lymphatic Hematologic/Lymphatic: reports: Anemia, Recurrent infections (reports right foot worsening and more drainage) - All Other Systems All Other Systems: reports: Reviewed and negative Physical Exam - Vital Signs Temperature: 98.2 C Pulse Rate: 97 Respiratory Rate: 18 O2 Saturation: 96 (ra @ rest) Blood Pressure: 152/62 - Physical Exam General Appearance: positive: No acute distress Eyes Bilateral: positive: Normal inspection ENT: positive: No signs of dehydration Neck: positive: No JVD, Trachea midline Cardiovascular: positive: Regular rate & rhythm Respiratory: positive: Breath sounds nml, Diminished in bases Abdomen: positive: Nml bowel sounds Skin: positive: Pallor, Dryness, Other (patient with venous stasis; declined examination of right foot wound; left LE with dried plaques of skin/no redness or open sores.) Extremities: positive: Pedal edema (LE bilateral up to thighs; using furosemide daily, occasionally taking twice a day) Neurologic/Psychiatric: positive: Oriented x3, Mood/affect nml, Weakness Palliative Care - POLST Patient has POLST: Yes POLST Status: DNR, Selective Treatment (POLST use antibiotics to prolong life; No medical nutrition; no dialysis under any condition) Pain: Pain worsening, Location (Main location is right posterior thoracic area, does report oxycodone 10 mg lasting only 3 3-1/2 hours, has been taking it about every 4 hours totaling 6 tabs a day. Reports increasing generalized pain, as well as lower extremity discomfort. On the severity of moderate to severe.) Tiredness/Fatigue: Severe (7-10) Drowsiness/Sedation: Mild (1-3) Nausea: Moderate (4-6), With vomiting (occasional) Depression: Moderate (4-6) Anxiety: Mild (1-3) Dyspnea: Mild (1-3) (with activity) Anorexia: Moderate (4-6), Weight loss Sleep: Sleeps poorly Constipation: Comment (ileostomy) Feelings of wellbeing/Perceived Quality of Life: Fair, Worsening Performance Status: Patient only occasionally driving secondary to fatigue and increased difficulty with lower extremities. Is having increased difficulty with tolerating shower, as well as concern regarding safety. She does often wait till her daughter is v isiting. Much to her frustration, she is less able to manage her household tasks and chores. Is pacing her activities secondary to fatigue - Palliative Care Discussion: Patient shared her daughter is , is expecting in May and does not perceive she will be around to be present for the . She reports she is working on finding other supports for her daughter. This is great sadness but also somewhat resigned to this. Given patient's physical deterioration, most likely worsening kidney function, discussed the role and recommendation for h ospice support. Patient is fiercely independent, also is hesitant as to upset her daughter, as this does somewhat finalize and make "real" patient's pending decline. She also has her own healthcare belief model, is worried that this will be infringe on her and comments "I will do it my way" and has had many negative experiences with the healthcare system. Also addressed questions and went into more detail per patient's request regarding with dignity, she does have the paperwork, but wanted to understand more of the process and what is involved. Did discuss would most likely be helpful if we did have updated numbers to qualify, the patient's concern is if "she has numbers in her head" these direct further her ermelinda and negative thoughts. Impression and Recommendations - Palliative Care Impression: This is a 68-year-old woman with end-stage renal disease, choosing not to Pursue further workup and/or dialysis. She continues to present with physical decline, high symptom burden of pain, fatigue, anorexia, weight loss and increasing lower extremity edema. Palliative care to provide support as patient allows, and transition to hospice when chooses. Recommendations/Counseling Done: 1. Chronic pain syndrome. Counseling provided regarding patient's increasing pain, reviewed patient could either decrease the interval to every 3 hours or increase the dosing to 15 mg, to evaluate if better relief. Discussed in the context of her ongoing decline, the goal is to address her pain and suffering, patient does not have any untoward effects as far as sedation, confusion, or aberrant behaviors. Patient will evaluate and follow-up as we will need to adjust prescription. 2. End-stage renal failure without procedure of dialysis. Patient reports still making urine, continue with increased difficulty with lower extremity edema not as responsive to furosemide. Again making difficult to titrate without labs, did express my concerns, but a significant quality of life issue for her and adversion to blood and needles barrier to follow through. 3. Venous stasis in lower extremities. She does have a wound on her right foot, declines again to have examined. Left leg that was observed is without redness, erythema, plaques remain but seems improved. Patient asking about wrapping, would recommend just gentle Jd wraps, has found support hose extremely uncomfortable. Instructed to put very little pressure on area secondary concern for break down but may help with swelling. Will bring Tubigrip at next visit. Discussed concern regarding patient's conversation about antibiotics for "prophylactic", declined evaluation, discussed could not prescribe without further follow-up. Patient currently without fever, chills, though has had some increased discomfort. Will contact me or PCP to further pursue treatment if indicated 4. Fatigue, this is multifactorial in origin. Did review resources to be able to help with household tasks and IADLs. Did recommend self would be at home, phone number and website given as well as job bank at [employer]. Patient remains quite distrustful of having someone come into her home, feels very vulnerable. Did discuss with patient would accept blood transfusion, suspect given her pallor, and numbers in March, she might have worsening anemia. She reports she would decline this, as an intervention. 5. Advanced care planning. Patient remains quite frail, does present today with physical decline, as well as high symptom burden. I do believe at this point in time she would meet criteria for hospice, would be helpful to have labs, though patient resistant to this. She did give me permission to follow-up with hospice biomedical electronics technician regarding this. Counseling provided regarding hospice, with dignity, anticipatory guidance in the context of answering her questions was given. Given patient's wishes and communication style, allow patient to leave for information. Time Spent: 60 minutes with greater than 50% of this provided in counseling, anticipatory guidance, focus on pain and symptom management as well as end-of-life planning and community resources. Patient in agreement to meet next month, will call sooner if wants to transition to hospice and/or other concerns arise
== END 2018-10-07 14:31 | disposition home or self-care (01) ==
LOC: PC 14:30
PROVIDERS: ATTEND Nurse Practitioner Adult Health
DX: Z51.5 Encounter for palliative care (principal); G89.4 Chronic pain syndrome; N18.6 End stage renal disease; E11.22 Type 2 diabetes mellitus with diabetic chronic kidney disease; E11.42 Type 2 diabetes mellitus with diabetic polyneuropathy; E11.51 Type 2 diabetes mellitus with diabetic peripheral angiopathy without gangrene; E11.610 Type 2 diabetes mellitus with diabetic neuropathic arthropathy; E11.621 Type 2 diabetes mellitus with foot ulcer; Z91.19 Patient's noncompliance with other medical treatment and regimen; R53.83 Other fatigue; D64.9 Anemia, unspecified; M54.6 Pain in thoracic spine; R10.11 Right upper quadrant pain; M79.605 Pain in left leg; M79.604 Pain in right leg; Z66 Do not resuscitate; Z79.891 Long term (current) use of opiate analgesic; Z79.4 Long term (current) use of insulin; Z93.2 Ileostomy status
CPT/HCPCS: 99350

== ENCOUNTER 2018-10-28 17:55 | Outpatient (CLI) | payer MEDICARE, OTHER ==
--- NOTE | 2018-10-28 18:02 | CONSULTATION NOTE ---
Palliative Care Follow Up - Referral Referring Provider: Lesly HERRERA Time of Visit: 0550-1829 Referral setting: Home Referral Reason: ESRD not on dialysis/URI - Information Sources Records reviewed: Previous records reviewed History/Review of Systems obtained from: Patient Exam limitations: No limitations - History of Present Illness Update Brief HPI Update: This is a fiercely independent 68-year-old woman who presents with end-stage renal disease, who has decided not to pursue further dialysis or nephrology support. She very much does not want to "watch the numbers", her last labs are from March 22/2018 when she was seen in the ED for cellulitis of her right foot. At that point in time her creatinine was 5.6, BUN 44, and GFR was 8. She also presented anemic with hemoglobin of 8.7 and hematocrit 26.0. She has wanted little intervention or support, but appreciative of palliative care interactions. She called at the end of last week, reporting increased respiratory symptoms, cough, shortness of breath, chest heaviness. She did report chills and feeling like she had "pneumonia". Patient unwilling to go to ED for evaluation, discussed in the context of her goals, would go ahead and treat her with a Z- Dino. This was called into [facility], encouraged to start right away, but she just finished yesterday. Visit today to follow-up on current symptom burden, and provide anticipatory guidance and follow up on hospice recommendation . Patient does present with increasing fatigue, increased difficulty with activity tolerance, she does report sleeping more as well as having her days and nights flipped. She is having increased pain, most of this is located in her right lower thoracic region, radiating across abdomen, but also generalized as well as lower extremity discomfort from her increasing lower extremity edema, now with abdominal swelling, and ongoing peripheral neuropathy. She does have fluctuating status as far as intermittent nausea and vomiting, she reports very little intake, and appears quite ill today. She does present as more cachectic in her upper thoracic, upper extremities, and face. She does admit to some increased sadness and depression, denies confusion or memory issues. Patient's past medical history also includes diabetes, insulin-dependent. Patient vehemently dislikes needles and blood, so does not do blood sugars but has been basing her Lantus on her intake, symptoms, and past experiences. She has Charcot tooth, reports having draining from her right chronic foot wound that remains chronic. She also has multiple issues with lower extremity circulation, venous stasis, as well as a complex history with multiple hospitalizations and surgeries attributed to both her Charcot foot and her Crohn's disease and has an ileostomy. Social History - Living Situation Living arrangement: At home Living Situation: Alone Support System: Patient lives alone, has been talk about hiring help for several months. She does recognize that with her declining functional status this is much more of an urgent need. She did find someone to hire who starts tomorrow, who works as a [employer] and has experienced recently at [employer]. She has a ramón daughter Jodie, and her come up every weekend to assist her. She is quite concerned about her daughter, and she is 12 weeks , today she had good news that it was doing well with an ultrasound. She does not perceive that she will be alive in May to see that delivery. She worries about the stress of her decline on her daughter. Medications/Allergies - Medications Home Medications: Ambulatory Orders Medication Instructions Recorded Confirmed oxyCODONE [Roxicodone] 10 - 15 mg ORAL Q3HR PRN MDD 9 tabs 09/21/14 10/07/18 Furosemide 20 - 40 mg PO DAILY PRN 12/03/17 10/07/18 Insulin Glargine [Lantus Solostar] 8 - 20 units SUBQ QPM 12/03/17 10/07/18 Ondansetron [Ondansetron Odt] 4 mg PO Q6HR PRN 12/03/17 10/07/18 Vitamin B Complex/Folic Acid 1 tab PO DAILY 12/03/17 10/07/18 [B-Complex Tablet] amLODIPine [Norvasc] 10 mg PO DAILY 12/03/17 10/07/18 Cholecalciferol (Vitamin D3) 4 tab PO DAILY 12/13/17 10/07/18 [Vitamin D3] Multivitamin [Multiple Vitamins] 1 tab PO DAILY 12/13/17 10/07/18 [place]-3 Fatty Acids/Fish Oil 1 cap PO DAILY 12/13/17 10/07/18 [[place]-3 Fish Oil 1,000 mg Sfgl] Potassium Gluconate 3 - 6 tab PO PRN PRN MDD with 12/13/17 10/07/18 furosemide prn dosing Calcium/Magnesium/Vitamin D3 1 tab PO DAILY 04/01/18 10/07/18 [Christo-Mag Complex 300-150 mg Tab] Lactobacillus Acidophilus 1 cap PO DAILY 04/01/18 10/07/18 [Probiotic Acidophilus] Melatonin 1 tab PO QPM 04/01/18 10/07/18 - Allergies Allergies/Adverse Reactions: Allergies Allergy/AdvReac Type Severity Reaction Status Date / Time codeine Allergy unknown Verified 09/21/14 19:15 gabapentin AdvReac Dizziness Verified 12/14/17 07:33 gluten AdvReac Unknown Verified 09/21/14 19:15 methadone AdvReac Dizziness Verified 12/14/17 07:33 Review of Systems - Constitutional Constitutional: reports: Fatigue, Chills, Weakness, Poor appetite. denies: Fever - Ears, Nose & Throat Ears, Nose & Throat: reports: Nasal congestion (Reports has right ear problems, is having drainage down the side of her neck, post nasal congestion is adding to her cough and respiratory discomfort per her perception. Denies pain or tender ness in her ear, is mostly the drainage that is problematic for her.), Hoarseness, Dry mouth - Cardiovascular Cardiovascular: reports: Edema, Lightheadedness, Exertional dyspnea, Decr. exercise tolerance, Orthopnea - Respiratory Respiratory: reports: Cough, Orthopnea, SOB at rest, SOB with exertion. denies: Sputum production - Gastrointestinal Gastrointestinal: reports: Nausea (needing ondansetron 2-3 x a day), Vomiting, Bloating, Poor appetite - Genitourinary Genitourinary: reports: Other (patient still producing urine) - Musculoskeletal Musculoskeletal: reports: Muscle pain, Back pain, Muscle aches, Stiffness, Muscle weakness - Integumentary Integumentary: reports: Rash (venous stasis LE with plaques/scales;), Pruritis, Dryness - Neurological Neurological: reports: General weakness, Dizziness - Psychiatric Psychiatric: reports: Depression - Endocrine Endocrine: reports: Diabetes type 2 - Hematologic/Lymphatic Hematologic/Lymphatic: reports: Anemia, Recurrent infections - All Other Systems All Other Systems: reports: Reviewed and negative Physical Exam - Vital Signs Temperature: 97.3 C Pulse Rate: 94 Respiratory Rate: 18 (24 with activity) O2 Saturation: 91 (ra @ rest) Blood Pressure: 140/68 - Physical Exam General Appearance: positive: Mild distress Eyes Bilateral: positive: Normal inspection Neck: positive: Trachea midline Cardiovascular: positive: Tachycardia Respiratory: positive: Diminished in bases (left greater than right). negative: Wheezes, Rales, Rhonchi Abdomen: positive: Tenderness, Distended Skin: positive: Pallor, Dryness, Other (LE with plaques/scaling; no s/s cellulitis or weeping currently) Extremities: positive: Pedal edema (taut up into thigh and sacral area) Neurologic/Psychiatric: positive: Oriented x3, Weakness, Depressed mood/affect Palliative Care - POLST Patient has POLST: Yes POLST Status: DNR, Selective Treatment Pain: Pain worsening, Location (Patient uses oxycodone 10 mg 1 every 3-3-1/2 hours, did not try the increased dose. Does report pain is escalating particularly in the right thoracic area posteriorly.) Tiredness/Fatigue: Severe (7-10) Drowsiness/Sedation: Moderate (4-6) Nausea: Moderate (4-6) Depression: Moderate (4-6) Anxiety: Mild (1-3) (Patient prefers information just in small chunks, she likes to ask questions for information she seeking. She does not like to have negative energy or thoughts in her head, she does recognize she is declining but wants information slowly revealed) Dyspnea: Severe (7-10) Anorexia: Severe (7-10) Sleep: Variable sleep pattern Feelings of wellbeing/Perceived Quality of Life: Poor, Worsening Performance Status: Patient spending most of her time on the couch/recliner. She can ambulate short distances. She is still doing her own ADLs, most likely would benefit from some bathing assistance. She is quite fatigued, has many things she wants to "wrap- up", is anxious to have her help start to be able to put things in order. - Palliative Care Discussion: Patient is very introverted on one level in the context of appreciating her privacy, being in control of her own schedule, but easily connect with others. 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 She has a eclectic beliefs, particularly around spiritual matters. Discussed at length tra nsitioning to hospice today, given patient's goals to remain at home, but will need some pre-planning for end-of-life. Daughter and KISHA have expressed wishes to have her in their home, she does not want that legacy of her there. She is willing to start the process, encouraged daughter to reach out if she has further questions, as patient does not ask enough questions to her daughter's liking. Counseling provided regarding the hospice benefit both limitations and benefits. Impression and Recommendations - Palliative Care Impression: This is a 68-year-old woman with end-stage renal disease, choosing not to pursue further workup and or dialysis. She presents today is quite frail, with residual upper respiratory infection symptoms, I symptom burden of pain, fatigue, anorexia, and increasing lower extremity edema. Patient ready to transition to hospice. Recommendations/Counseling Done: 1. 1. Chronic pain syndrome, multifactorial in origin. Counseling provided regarding increasing patient's pain medication oxycodone 10 mg, encouraged to decrease interval to 3 hours or increase the dosing to 15 mg neither of which she follow through on. She has been trialed on methadone, she had a negative response to this. She may be a candidate for fentanyl in the future, concern is she needs further interaction and support. Currently she is not had any untoward effects as far as sedation, confusion, or aberrant behaviors. She is due for a prescription this next week. 2. End-stage renal failure without procedure of dialysis. Patient reports still making urine, is having increased difficulty with lower extremity edema. Because she is not been eating or drinking this last week has not been using furosemide. Encouraged to use 40 mg for a few days to see if this will decrease severity of this. Again making things difficult to titrate without labs, weighing benefits and burdens. 3. Venous stasis in lower extremities. Patient does have a wound on her right foot again declines to have it examined. Both legs have thick plaques, no redness or erythema though. Patient may be candidate for Tubigrip, will benefit from bathing assistance and loosening on lower extremities. 4. Upper respiratory infection. Patient did receive a Z-Dino, still is quite breathless but I suspect this may also be related to her anemia. She just finished, continues with cough and feeling poorly. Patient may benefit from oxygen with hospice admit 5. Fatigue this is multifactorial in origin. Patient is looking forward to having assistance with helping in the home, she has some things that she wants to wrap-up. She is having increased difficulty meeting her needs as far as IADLs and ADLs. I suspect some of the fatigue is related to her and worsening anemia, patient reports she would decline blood transfusion. 6. Advanced care planning. Patient remains quite frail, continues with ph ysical decline and high symptom burden. She has agreed to transition to hospice, patient has inquired about the with dignity, anticipatory guidance given in the context of answering her questions. Patient wishes to continue to be in control but willing to accept help now that she is declining fairly rapidly. Time Spent: 60 minutes with greater than 50% of this done in counseling regarding goals of care, hospice benefit, symptom management, and anticipatory guidance. Coordination of care with hospice team.
== END 2018-10-28 17:56 | disposition home or self-care (01) ==
LOC: PC 17:55
PROVIDERS: ATTEND Nurse Practitioner Adult Health
DX: Z51.5 Encounter for palliative care (principal); E11.22 Type 2 diabetes mellitus with diabetic chronic kidney disease; N18.6 End stage renal disease; E11.42 Type 2 diabetes mellitus with diabetic polyneuropathy; E11.51 Type 2 diabetes mellitus with diabetic peripheral angiopathy without gangrene; E11.610 Type 2 diabetes mellitus with diabetic neuropathic arthropathy; R11.2 Nausea with vomiting, unspecified; G89.4 Chronic pain syndrome; K50.90 Crohn's disease, unspecified, without complications; F32.9 Major depressive disorder, single episode, unspecified; R53.83 Other fatigue; R63.0 Anorexia; R60.0 Localized edema; J06.9 Acute upper respiratory infection, unspecified; Z66 Do not resuscitate; Z79.891 Long term (current) use of opiate analgesic; Z79.4 Long term (current) use of insulin
CPT/HCPCS: 99350